=== PATIENT | male | born 1965 | race Caucasian/White ===

== ENCOUNTER 2018-01-10 12:21 | Emergency (ER) | payer MEDICAID ==
[~2018-01-10] VITALS: Ht 165.1 cm; Wt 75.0 kg
[2018-01-10] MEDS ORDERED: ACETAMINOPHEN 325MG TABLET PO ONE (15:30)
[2018-01-10 16:10] VITALS: BP 180/81
== END 2018-01-10 16:12 | disposition home or self-care (01) ==
LOC: ER 12:21
DX: J02.9 Acute pharyngitis, unspecified (principal); I10 Essential (primary) hypertension; R09.81 Nasal congestion; E11.9 Type 2 diabetes mellitus without complications; I51.9 Heart disease, unspecified
CPT/HCPCS: 87070; 87430; 99284

== ENCOUNTER 2018-02-26 15:30 | Inpatient (IN) | payer MEDICAID ==
[~2018-02-26] VITALS: Ht 167.6 cm; Wt 86.2 kg
[~2018-02-26 15:30] MED LIST: ASPI-1159 MT; GABA-531 MT; GLIP10TA10 MT; SIMV40TA5 MT
[2018-02-26 18:46] LABS: BASOPHILS % 1.3 % (0.0-2.0); EOSINOPHILS % 2.6 % (0.0-5.0); HEMATOCRIT. 34.4 % (42.0-52.0); HEMOGLOBIN. 11.2 g/dL (14.0-18.0); LYMPHOCYTES % 17.6 % (20.0-50.0); MEAN CORPUSCULAR VOLUME 85.9 fL (80.0-94.0); MEAN PLATELET VOLUME 10.3 fl (7.4-10.4); MONOCYTES % 13.2 % (2.0-8.0); NEUTROPHILS % 65.3 % (40.0-76.0); PLATELET 198 x1000/uL (130-400); RED CELL DISTRIBUTION WIDTH 14.4 % (11.6-14.6)
[2018-02-26 18:51] LABS: CHLORIDE 111 mEq/L (98-107)
[2018-02-26 19:09] LABS: CLARITY URINE CLEAR (CLEAR); COLOR URINE YELLOW (YELLOW); KETONES URINE NEGATIVE (NEGATIVE); LEUKOCYTE ESTERASE URINE NEGATIVE (NEGATIVE); NITRITE URINE NEGATIVE (NEGATIVE); OCCULT BLOOD URINE NEGATIVE (NEGATIVE); PH URINE 6.5 (4.5-8.0); PROTEIN URINE NEGATIVE (NEGATIVE); UROBILINOGEN URINE 0.2 E.U./dL (0.2-1.0)
[2018-02-26 19:29] LABS: *AMPHETAMINES SCREEN URINE NEGATIVE (NEGATIVE); *BARBITURATES SCREEN URINE NEGATIVE (NEGATIVE); *BENZODIAZEPINES SCREEN URINE NEGATIVE (NEGATIVE); *COCAINE SCREEN URINE NEGATIVE (NEGATIVE); CANNABINOID URINE SCREEN NEGATIVE (NEGATIVE); METHADONE URINE SCREEN NEGATIVE (NEGATIVE); OPIATES URINE SCREEN NEGATIVE (NEGATIVE); PHENCYCLIDINE URINE SCREEN NEGATIVE (NEGATIVE)
[2018-02-26] MEDS ORDERED: FUROSEMIDE 40MG/4ML VIAL IVP ONE (20:15)
[2018-02-27] MEDS ORDERED: HYDR100T26 PO (05:57)
[2018-02-27] MEDS ORDERED: LOSA50TA20 PO (05:57)
[2018-02-27] MEDS ORDERED: MINO10TA PO (05:57)
[2018-02-27] MEDS ORDERED: FURO40TA5 PO (05:57)
[2018-02-27] MEDS ORDERED: LISI40TA4 PO (05:57)
[2018-02-27] MEDS ORDERED: NIFE90TA34 PO (05:57)
[2018-02-27] MEDS ORDERED: CARV12.545 PO (05:57)
[2018-02-27] MEDS ORDERED: CLON0.1T PO (05:57)
[2018-02-27] MEDS ORDERED: ISOS60TA4 PO (05:57)
[2018-02-27] MEDS ORDERED: HYDRALAZINE HCL 100MG TABLET PO SCH (06:00)
[2018-02-27] MEDS ORDERED: MEDICATION NOT ON FORMULARY EA (Hydralazine Hcl 100 MG) PO SCH (06:00)
[2018-02-27 06:14] VITALS: BP 170/75
[2018-02-27] MEDS ORDERED: DEXTROSE 50% WATER 50ML SYRINGE IV PRN (06:15)
[2018-02-27] MEDS: CLONIDINE 0.1MG TABLET PO SCH ×3 (06:46→22:00)
[2018-02-27] MEDS: INSULIN LISPRO 100 UNITS/ML SUBCUT SCH ×4 (06:51→21:48)
[2018-02-27] MEDS: BLOOD SUGAR DIAGNOSTIC STRIP TEST SCH ×4 (06:51→21:47)
[2018-02-27 08:00] VITALS: BP 141/61
[2018-02-27 08:45] VITALS: BP 141/61
[2018-02-27] MEDS ORDERED: ISOSORBIDE MONONITRATE 60 MG PO SCH (09:00)
[2018-02-27] MEDS ORDERED: MEDICATION NOT ON FORMULARY EA (Furosemide 40 MG) PO SCH (09:00)
[2018-02-27] MEDS ORDERED: MINOXIDIL 10MG TABLET PO SCH (09:00)
[2018-02-27] MEDS ORDERED: LISINOPRIL 40MG TABLET PO SCH (09:00)
[2018-02-27] MEDS ORDERED: MINOXIDIL 10 MG PO SCH (09:00)
[2018-02-27] MEDS ORDERED: MEDICATION NOT ON FORMULARY EA (Losartan Potassium 50 MG) PO SCH (09:00)
[2018-02-27] MEDS ORDERED: MEDICATION NOT ON FORMULARY EA (Gabapentin 1 CAP) MT SCH (09:00)
[2018-02-27] MEDS ORDERED: NIFEDIPINE 90 MG PO SCH (09:00)
[2018-02-27] MEDS ORDERED: LOSARTAN POTASSIUM 50 MG TABLET PO SCH (09:00)
[2018-02-27] MEDS ORDERED: FUROSEMIDE 40MG TABLET PO SCH (09:00)
[2018-02-27] MEDS: METOPROLOL TARTRATE 100MG TABLET PO SCH (09:49)
[2018-02-27] MEDS: GABAPENTIN 300MG CAPSULE PO SCH ×3 (09:50→17:53)
[2018-02-27] MEDS: NIFEDIPINE XL 90MG TAB PO SCH (09:50)
[2018-02-27] MEDS: ISOSORBIDE MONONITRATE 60MG TABLET SR 24HR PO SCH (09:51)
[2018-02-27] MEDS: CARVEDILOL 12.5MG TABLET PO SCH ×2 (09:51→21:46)
[2018-02-27] MEDS ORDERED: SODIUM POLYSTYRENE SULFONATE 15 G/60 ML BOT PO SCH (10:00)
[2018-02-27 10:49] LABS: BASOPHILS % 1.3 % (0.0-2.0); HEMATOCRIT. 32.9 % (42.0-52.0); LYMPHOCYTES % 13.7 % (20.0-50.0); MEAN CORPUSCULAR HEMOGLOBIN 29.1 pg (28.0-32.0); MEAN CORPUSCULAR VOLUME 86.7 fL (80.0-94.0); MEAN PLATELET VOLUME 9.8 fl (7.4-10.4); MONOCYTES % 11.9 % (2.0-8.0); NEUTROPHILS % 70.1 % (40.0-76.0); PLATELET 176 x1000/uL (130-400); RED CELL DISTRIBUTION WIDTH 14.3 % (11.6-14.6)
[2018-02-27 12:56] VITALS: BP 130/53
[2018-02-27 17:31] VITALS: BP 122/53
[2018-02-27 20:00] VITALS: BP 126/53
[2018-02-27] MEDS ORDERED: ATORVASTATIN CALCIUM 20MG TABLET PO SCH (21:00)
[2018-02-27] MEDS ORDERED: ENOXAPARIN 40MG/0.4ML SYR SUBCUT SCH (21:00)
[2018-02-27] MEDS ORDERED: MEDICATION NOT ON FORMULARY EA (Simvastatin 1 TAB) MT SCH (21:00)
[2018-02-27] MEDS: MINOXIDIL 2.5MG TABLET PO SCH (21:47)
[2018-02-28] VITALS: BP 136/60
[2018-02-28] MEDS: METOPROLOL TARTRATE 100MG TABLET PO SCH ×2 (00:39→10:38)
[2018-02-28 04:00] VITALS: BP 120/53
[2018-02-28] MEDS: CLONIDINE 0.1MG TABLET PO SCH (06:00)
[2018-02-28] MEDS: BLOOD SUGAR DIAGNOSTIC STRIP TEST SCH ×2 (06:23→11:57)
[2018-02-28] MEDS: INSULIN LISPRO 100 UNITS/ML SUBCUT SCH ×2 (06:23→12:21)
[2018-02-28 07:35] LABS: BASOPHILS % 1.8 % (0.0-2.0); EOSINOPHILS % 3.7 % (0.0-5.0); HEMATOCRIT. 32.8 % (42.0-52.0); HEMOGLOBIN. 10.8 g/dL (14.0-18.0); LYMPHOCYTES % 21.1 % (20.0-50.0); MEAN CORPUSCULAR HEMOGLOBIN 28.3 pg (28.0-32.0); MEAN CORPUSCULAR VOLUME 86.2 fL (80.0-94.0); MEAN PLATELET VOLUME 9.9 fl (7.4-10.4); MONOCYTES % 14.8 % (2.0-8.0); NEUTROPHILS % 58.6 % (40.0-76.0); PLATELET 174 x1000/uL (130-400); RED BLOOD CELL COUNT 3.81 mill/uL (4.7-6.1); RED CELL DISTRIBUTION WIDTH 14.1 % (11.6-14.6)
[2018-02-28] MEDS ORDERED: REGADENOSON 0.4 MG/5 ML IV ONE (07:49)
[2018-02-28 08:00] VITALS: BP 151/64
[2018-02-28 08:09] LABS: PHOSPHORUS 4.3 mg/dL (2.5-4.9)
[2018-02-28] MEDS: NIFEDIPINE XL 90MG TAB PO SCH (10:38)
[2018-02-28] MEDS: CARVEDILOL 12.5MG TABLET PO SCH (10:38)
[2018-02-28] MEDS: MINOXIDIL 2.5MG TABLET PO SCH (10:38)
[2018-02-28] MEDS: GABAPENTIN 300MG CAPSULE PO SCH (10:39)
[2018-02-28] MEDS: ISOSORBIDE MONONITRATE 60MG TABLET SR 24HR PO SCH (10:39)
[2018-02-28] MEDS ORDERED: REGADENOSON 0.4 MG/5 ML IV SCH (10:45)
[2018-02-28 18:10] VITALS: BP 151/62
== END 2018-02-28 18:51 | disposition home or self-care (01) | DRG 194 ==
LOC: ER 15:30 → 5WST 20:21 → EDBEDREQ 20:23 → EDBEDREQTM 20:23 → ENRESERV 02-27 02:55
PROVIDERS: ADMIT Internal Medicine; ATTEND Internal Medicine
DX: I13.0 Hypertensive heart and chronic kidney disease with heart failure and stage 1 through stage 4 chronic kidney disease, or unspecified chronic kidney disease (principal); E11.22 Type 2 diabetes mellitus with diabetic chronic kidney disease; E11.649 Type 2 diabetes mellitus with hypoglycemia without coma; N17.9 Acute kidney failure, unspecified; N18.3 Chronic kidney disease, stage 3 (moderate); I50.33 Acute on chronic diastolic (congestive) heart failure; E78.5 Hyperlipidemia, unspecified; E87.8 Other disorders of electrolyte and fluid balance, not elsewhere classified; E66.9 Obesity, unspecified; E87.5 Hyperkalemia; D64.9 Anemia, unspecified; I25.10 Atherosclerotic heart disease of native coronary artery without angina pectoris; I44.7 Left bundle-branch block, unspecified; F10.10 Alcohol abuse, uncomplicated; Z60.2 Problems related to living alone; Z82.49 Family history of ischemic heart disease and other diseases of the circulatory system; Z83.3 Family history of diabetes mellitus; Z87.891 Personal history of nicotine dependence; Z68.30 Body mass index [BMI] 30.0-30.9, adult; Z56.0 Unemployment, unspecified; Z79.82 Long term (current) use of aspirin
CPT/HCPCS: 36415; 71045; 76770; 78452; 80048; 80305; 82550; 82962; 83735; 83880; 84100; 84484; 93005; 93017; 93970; 96374; 99285; A9500; J1650; J1815; J1940; J2785